=== PATIENT | female | born 2000 | race Caucasian/White ===

== ENCOUNTER 2021-09-25 | Inpatient (IN) ==
[2021-09-25] MEDS ORDERED: CARBOPROST TROMETHAMINE 250 MCG/ML AMP IM PRN (00:10)
[2021-09-25] MEDS ORDERED: LACTATED RINGERS 500 ML IV PRN (00:10)
[2021-09-25] MEDS ORDERED: ONDANSETRON 4 MG/2 ML VIAL IV PRN (00:10)
[2021-09-25] MEDS ORDERED: TRANEXAMIC ACID 1,000 MG in SODIUM CHLORIDE 0.9% 100 ML IV PRN (00:10)
[2021-09-25] MEDS ORDERED: miSOPROStoL 200 MCG TABLET RECTAL PRN (00:10)
[2021-09-25] MEDS ORDERED: LACTATED RINGERS 250 ML IV ONE (00:10)
[2021-09-25] MEDS ORDERED: METHYLERGONOVINE 0.2 MG/1 ML AMP IM PRN (00:10)
[2021-09-25] MEDS ORDERED: OXYTOCIN/LR 20 UNIT/1,000 ML BAG IV ONE (00:10)
[2021-09-25 00:31] LABS: Basophils # 0.1 10*3/uL (0.0-0.2); Basophils % 0.4 % (0.0-0.8); Eosinophils # 0.2 10*3/uL (0.0-0.87); Eosinophils % 1.7 % (0.00-10.9); Hematocrit 37.8 VOL% (35.7-47.0); Hemoglobin 12.6 GM/DL (12.0-16.0); Immature Granulocytes % 1.6 %; Immature Granulocytes Absolute 0.19 #; Lymphocytes # 2.3 10*3/uL (1.4-4.0); Lymphocytes % 20.1 % (21.3-54.2); Mean Corpuscular HGB Conc 33.3 GM/DL (32-36); Mean Corpuscular Volume 85.9 FL (87-102); Mean Platelet Volume 11.4 FL (9.6-12.0); Monocytes # 0.9 10*3/uL (0.11-0.8); Neutrophils % 68.2 % (38.7-73.9); Platelet Count 163 T/CUMM (130-400); Red Cell Distribution Width 15.3 % (9.3-17.3); White Blood Count 11.6 T/CUMM (4-12)
[2021-09-25] MEDS: LACTATED RINGERS 1,000 ML IV SCH ×4 (00:39→23:35)
[2021-09-25] MEDS ORDERED: BUTORPHANOL 2 MG/ML VIAL IV PRN (15:15)
[2021-09-25] MEDS ORDERED: OXYTOCIN/D5LR 20 UNIT/1,000 ML PREMIX IV SCH (15:30)
[2021-09-25] MEDS ORDERED: diphenhydrAMINE 50 MG/1 ML VIAL IV PRN ×2 (15:36)
[2021-09-25] MEDS ORDERED: LACTATED RINGERS 1,000 ML IV ONE (15:36)
[2021-09-25] MEDS ORDERED: ePHEDrine 50 MG/ML VIAL IV PRN (15:36)
[2021-09-25] MEDS ORDERED: CITRIC ACID/SODIUM CITRATE 30 ML UDCUP PO ONE (15:36)
[2021-09-25] MEDS ORDERED: NALOXONE 0.4 MG/ML VIAL IV PRN (15:36)
[2021-09-25] MEDS ORDERED: hydrOXYzine HCL 25 MG/1 ML VIAL IM PRN (15:36)
[2021-09-25] MEDS ORDERED: FAMOTIDINE 20 MG/2 ML VIAL IV ONE (15:36)
[2021-09-25] MEDS: fentaNYL 2 MCG/ROPIV 0.2% EPID 100 ML EPIDURAL SCH (16:32)
[2021-09-25] MEDS: OXYTOCIN/LR 20 UNIT/1,000 ML BAG IV SCH (17:20)
[2021-09-25 18:02] LABS: Mucus,Urine Occasional /LPF (Occasional); RBC,Urine 1 /HPF (0-4); Squamous Epithelial Cell,Urine Occasional /HPF (0-10)
[2021-09-25 18:03] LABS: Glucose,Urine (UA) Negative (Negative); Protein,Urine Negative (Negative); Urine Appearance Clear (Clear); Urine Color Yellow (Yellow); Urine pH 6.5 (4.5-8.0)
[2021-09-25 18:04] LABS: Bilirubin,Urine Negative (Negative); Blood, Urine Trace mg/dL (Negative); Ketones,Urine >=160 mg/dL (Negative); Nitrite,Urine Negative (Negative); Urine Urobilinogen 0.2 eU/dL (<2.0)
[2021-09-26] MEDS: fentaNYL 2 MCG/ROPIV 0.2% EPID 100 ML EPIDURAL SCH ×2 (02:20→08:45)
[2021-09-26] MEDS ORDERED: LIDOCAINE MPF 2% /EPI 20 ML VIAL ONE (09:50)
[2021-09-26] MEDS ORDERED: fentaNYL 100 MCG/2 ML VIAL ONE (09:51)
[2021-09-26] MEDS ORDERED: TRANEXAMIC ACID 1,000 MG/10 ML VIAL ONE (11:06)
[2021-09-26] MEDS ORDERED: miSOPROStoL 200 MCG TABLET ONE (11:06)
[2021-09-26] MEDS ORDERED: OXYTOCIN/LR 20 UNIT/1,000 ML BAG IV ONE ×2 (11:07→15:30)
[2021-09-26] MEDS ORDERED: METHYLERGONOVINE 0.2 MG/1 ML AMP ONE (11:07)
[2021-09-26] MEDS ORDERED: CARBOPROST TROMETHAMINE 250 MCG/ML AMP IM ONE (11:07)
[2021-09-26] MEDS ORDERED: SODIUM CHLORIDE 0.9% 0 ML IV ONE (11:07)
[2021-09-26 12:38] LABS: Cord Arterial Blood HCO3 16.9 MMOL/L
[2021-09-26 12:41] LABS: Cord Venous Blood HCO3 19.6 MMOL/L; Cord Venous Blood PCO2 46.4 MMHG; Cord Venous Blood PO2 27.6
[2021-09-26] MEDS: OXYTOCIN/LR 20 UNIT/1,000 ML BAG IV SCH (15:03)
[2021-09-26] MEDS ORDERED: LANOLIN 50% CREAM 0.3 OZ TUBE TOP PRN (15:06)
[2021-09-26] MEDS ORDERED: ACETAMINOPHEN 325 MG TABLET PO PRN (15:06)
[2021-09-26] MEDS ORDERED: HYDROCORTISONE 2.5% RECTAL CREAM 30 GM TUBE TOP PRN (15:06)
[2021-09-26] MEDS ORDERED: oxyCODONE/ACETAMINOPHEN 5-325 MG TABLET PO PRN ×2 (15:06)
[2021-09-26] MEDS ORDERED: BISACODYL 10 MG SUPP RECTAL PRN (15:06)
[2021-09-26] MEDS ORDERED: WITCH HAZEL PADS 100/JAR TOP PRN (15:06)
[2021-09-26] MEDS ORDERED: BENZOCAINE 20%/MENTHOL 0.5% SPRAY 56 GM CAN TOP PRN (15:06)
[2021-09-26] MEDS ORDERED: MEASLES/MUMPS/RUBELLA VACCINE 0.5 ML VIAL SUBCUT ONE (15:30)
[2021-09-26] MEDS ORDERED: DIPH/TET/ACEL PERT BOOSTER VACCINE 0.5 ML VIAL IM ONE (15:30)
[2021-09-26] MEDS ORDERED: RHO(D) IMMUNE GLOBULIN 300 MCG SYRINGE IM ONE (15:30)
[2021-09-26] MEDS: DOCUSATE SODIUM 100 MG CAPSULE PO SCH (20:43)
[2021-09-26] MEDS: IBUPROFEN 800 MG TABLET PO PRN (20:43)
[2021-09-27 06:19] LABS: Basophils # 0.1 10*3/uL (0.0-0.2); Basophils % 0.3 % (0.0-0.8); Eosinophils # 0.2 10*3/uL (0.0-0.87); Eosinophils % 1.4 % (0.00-10.9); Hematocrit 33.6 VOL% (35.7-47.0); Immature Granulocytes % 1.1 %; Immature Granulocytes Absolute 0.16 #; Lymphocytes # 2.8 10*3/uL (1.4-4.0); Lymphocytes % 18.5 % (21.3-54.2); Mean Corpuscular HGB Conc 32.7 GM/DL (32-36); Mean Corpuscular Volume 87.3 FL (87-102); Mean Platelet Volume 12.2 FL (9.6-12.0); Monocytes # 1.1 10*3/uL (0.11-0.8); Monocytes % 7.2 % (1.7-12.7); Neutrophils % 71.5 % (38.7-73.9); Platelet Count 146 T/CUMM (130-400); Red Blood Count 3.85 MC/CUMM (3.8-5.5); Red Cell Distribution Width 15.6 % (9.3-17.3); White Blood Count 15.2 T/CUMM (4-12)
[2021-09-27] MEDS: DOCUSATE SODIUM 100 MG CAPSULE PO SCH ×2 (09:13→21:03)
[2021-09-27] MEDS: IBUPROFEN 800 MG TABLET PO PRN (23:18)
[2021-09-28] MEDS: DOCUSATE SODIUM 100 MG CAPSULE PO SCH (09:16)
[2021-09-28 09:36] VITALS: BP 118/65
== END 2021-09-28 13:10 | disposition home or self-care (01) | DRG 560 ==
LOC: N.LD → N.OB 09-26 15:06
PROVIDERS: ADMIT Obstetrics & Gynecology; ATTEND Obstetrics & Gynecology